=== PATIENT | male | born 1995 | race Caucasian/White ===

== ENCOUNTER 2019-12-21 13:13 | Emergency (ER) | payer BC, MEDICAID ==
[~2019-12-21] VITALS: Ht 160 cm; Wt 59.1 kg
[2019-12-21 13:22] VITALS: BP 111/66
[2019-12-21] MEDS ORDERED: AMOX-422 PO (14:43)
== END 2019-12-21 14:59 | disposition home or self-care (01) ==
LOC: ER 13:14
DX: K04.7 Periapical abscess without sinus (principal); Z79.2 Long term (current) use of antibiotics
CPT/HCPCS: 99283

== ENCOUNTER 2021-12-18 08:33 | Emergency (ER) | payer BC, OTHER ==
[~2021-12-18] VITALS: Ht 160 cm; Wt 63.1 kg
[2021-12-18 09:01] VITALS: BP 133/88
[2021-12-18] MEDS ORDERED: PENI500T2 PO (09:16)
== END 2021-12-18 09:30 | disposition home or self-care (01) ==
LOC: ER 08:34
DX: K04.7 Periapical abscess without sinus (principal); F12.90 Cannabis use, unspecified, uncomplicated; Z72.89 Other problems related to lifestyle; Z79.899 Other long term (current) drug therapy
CPT/HCPCS: 99283

== ENCOUNTER 2022-07-10 17:06 | Emergency (ER) | payer MEDICAID ==
[~2022-07-10] VITALS: Ht 160 cm; Wt 61.4 kg
[2022-07-10 18:06] VITALS: BP 128/86
[2022-07-11] MEDS ORDERED: amox tr/potassium clavulanate 875/125mg TAB PO ONE (00:30)
[2022-07-11] MEDS ORDERED: AMOX-117 PO (00:32)
== END 2022-07-11 00:44 | disposition home or self-care (01) ==
LOC: ER 17:07
DX: K04.7 Periapical abscess without sinus (principal); F12.90 Cannabis use, unspecified, uncomplicated
CPT/HCPCS: 99283